=== PATIENT | male | born 1995 | race Hispanic/Latino ===

== ENCOUNTER 2022-06-07 18:16 | Emergency (ER) | payer OTHER ==
--- NOTE | 2022-06-07 18:51 | ER ---
Nurse's Notes [facility] Name: Jeffrey Brunson Age: 27 yrs Sex: Male : 1995 Arrival Date: 06/07/2022 Time: 18:18 Bed 16 Private MD: Diagnosis: Unspecified otitis externa, left ear Presentation: 06/07 18:20 Chief complaint: Left ear pain that radiates to neck x 3 days. Coronavirus screen: At this time, the client does not indicate any symptoms associated with coronavirus-19. Ebola Screen: No symptoms or risks identified at this time. Initial Sepsis Screen: Does the patient meet any 2 criteria? No. Patient's initial sepsis screen is negative. Does the patient have a suspected source of infection? No. Patient's initial sepsis screen is negative. Risk Assessment: Do you want to hurt yourself or someone else? Patient reports no desire to harm self or others. Onset of symptoms was June 04, 2022. 18:20 Method Of Arrival: Ambulatory 18:20 Acuity: CHILO 4 hb Historical: - Allergies: 18:21 No Known Allergies; hb - Immunization history:: Adult Immunizations unknown. - Social history:: Smoking status: unknown. Screenin:07 Abuse screen: Denies threats or abuse. Denies injuries from another. Nutritional db screening: No deficits noted. Tuberculosis screening: No symptoms or risk factors identified. Fall Risk None identified. No fall in past 12 months (0 pts). No secondary diagnosis (0 pts). No IV (0 pts). Ambulatory Aid- None/Bed Rest/Nurse Assist (0 pts). Gait- Normal/Bed Rest/Wheelchair (0 pts) Mental Status- Oriented to own ability (0 pts). Total Cornelius Fall Scale indicates No Risk (0-24 pts). Assessment: 19:06 Reassessment: Patient appears in no apparent distress at this time. Patient and/or db family updated on plan of care and expected duration. Pain level reassessed. Patient is alert, oriented x 3, equal unlabored respirations, skin warm/dry/pink. left ear pain x 3 days. 19:07 General: Appears in no apparent distress. comfortable, Behavior is calm, cooperative, db appropriate for age. Pain: Complains of pain in left ear. Neuro: No deficits noted. Level of Consciousness is awake, alert, obeys commands, Oriented to person, place, time, situation, Appropriate for age Speech is normal, Facial symmetry appears normal. Cardiovascular: No deficits noted. Respiratory: No deficits noted. GI: No deficits noted. : No deficits noted. No signs and/or symptoms were reported regarding the genitourinary system. EENT: Tympanic membrane reddened on left ear Ear canal pain. Vital Signs: 18:20 BP 165 / 78; Pulse 100; Resp 20; Temp 98.4; Pulse Ox 100% on R/A; Weight 154.22 kg; hb Height 5 ft. 10 in. (177.80 cm); Pain 6/10; 18:20 Body Mass Index 48.78 (154.22 kg, 177.80 cm) hb ED Course: 18:18 Patient arrived in ED. rg4 18:19 Sudhakar Miner PA is PHCP. cp 18:19 Dallas Bryan DO is Attending Physician. cp 18:21 Triage completed. hb 18:49 Tana Martinez MD is Referral Physician. cp 18:57 Leeanne Lemons, RN is Primary Nurse. db 19:07 Patient has correct armband on for positive identification. Bed in low position. Side db rails up X 1. 19:07 No provider procedures requiring assistance completed. Patient did not have IV access db during this emergency room visit. 19:11 Arm band placed on right wrist. db Administered Medications: No medications were administered Medication: 19:07 VIS not applicable for this client. db Outcome: 18:50 Discharge ordered by MD. cp 19:07 Discharged to home db 19:07 Discharged to home ambulatory. 19:07 Condition: stable 19:07 Discharge instructions given to Instructed on discharge instructions, follow up and referral plans. Prescriptions given X 1. 19:11 Patient left the ED. db Signatures: Sudhakar Miner PA PA cp Baxter, Heather, RN RN Caridad Munoz rg4 Leeanne Lemons RN RN db Corrections: (The following items were deleted from the chart) 19:09 19:06 Reassessment: Patient appears in no apparent distress at this time. Patient db and/or family updated on plan of care and expected duration. Pain level reassessed. Patient is alert, oriented x 3, equal unlabored respirations, skin warm/dry/pink. right ear pain x 3 days db
--- NOTE | 2022-06-07 18:51 | EDPHYS ---
Physician Documentation [facility] Name: Jeffrey Brunson Age: 27 yrs Sex: Male : 1995 Arrival Date: 06/07/2022 Time: 18:18 Bed 16 Private MD: ED Physician Dallas Bryan HPI: 06/07 18:48 This 27 yrs old Male presents to ER via Ambulatory with complaints of Ear Pain.cp 18:48 The complaints affect the left ear. cp 18:48 The patient presents with pain, that is acute, swelling. Onset: The symptoms/episode cp began/occurred 3 day(s) ago. 18:48 Associated signs and symptoms: The patient has no apparent associated signs or symptoms.cp 18:50 Patient reports he saw ENT Wednesday and had ear wax removed from left ear canal but no cp infection. Was told to return if pain continues. Historical: - Allergies: 18:21 No Known Allergies; hb - Immunization history:: Adult Immunizations unknown. - Social history:: Smoking status: unknown. ROS: 18:50 Eyes: Negative for injury, pain, redness, and discharge. cp 18:50 Constitutional: Negative for body aches, chills, fever, poor PO intake. 18:50 ENT: Positive for ear pain, Negative for drainage from ear(s), sore throat, difficulty swallowing, difficulty handling secretions. 18:50 Respiratory: Negative for cough, shortness of breath, wheezing. 18:50 Skin: Negative for rash. 18:50 Neuro: Negative for headache. 18:50 All other systems are negative. Exam: 18:50 Constitutional: The patient appears in no acute distress, alert, awake, non-toxic, well cp developed, well nourished, obese. 18:50 Head/Face: Normocephalic, atraumatic. cp 18:50 Eyes: Periorbital structures: appear normal, Conjunctiva: normal, no exudate, no injection, Lids and lashes: appear normal, bilaterally. 18:50 ENT: External ear(s): pain with movement, of the pinna of left ear and left ear canal, Ear canal(s): swelling, of the left canal, mild, TM's: dullness, bilaterally, Nose: is normal, Mouth: Lips: moist, Oral mucosa: pink and intact, moist, Posterior pharynx: Airway: no evidence of obstruction, patent. 18:50 Neck: Lymph nodes: no appreciated lymphadenopathy. 18:50 Chest/axilla: Inspection: normal. 18:50 Cardiovascular: Rate: normal. 18:50 Respiratory: the patient does not display signs of respiratory distress, Respirations: normal. 18:50 Skin: no rash present. Vital Signs: 18:20 BP 165 / 78; Pulse 100; Resp 20; Temp 98.4; Pulse Ox 100% on R/A; Weight 154.22 kg; hb Height 5 ft. 10 in. (177.80 cm); Pain 6/10; 18:20 Body Mass Index 48.78 (154.22 kg, 177.80 cm) hb MDM: 18:30 Patient medically screened. cp 18:50 Differential diagnosis: otitis media, otitis externa, ruptured TM, foreign body, acute cp otalgia, cerumen impaction. 18:50 Data reviewed: vital signs, nurses notes. Counseling: I had a detailed discussion with cp the patient and/or guardian regarding: the historical points, exam findings, and any diagnostic results supporting the discharge/admit diagnosis, the need for outpatient follow up, an ENT specialist, to return to the emergency department if symptoms worsen or persist or if there are any questions or concerns that arise at home. Administered Medications: No medications were administered Disposition: 18:57 Co-signature as Attending Physician, Dallas Bryan DO I was immediately available onsite ms3 in the emergency department for consultation in the care of the patient. Disposition Summary: 06/07/22 18:50 Discharge Ordered Location: Home cp Problem: new cp Symptoms: are unchanged cp Condition: Stable cp Diagnosis - Unspecified otitis externa, left ear cp Followup: cp - With: Tana Martinez MD - When: 2 - 3 days - Reason: Recheck today's complaints Discharge Instructions: - Discharge Summary Sheet cp - Otitis Externa cp Forms: - Medication Reconciliation Form cp - Thank You Letter cp - Antibiotic Education cp - Prescription Opioid Use cp - Work release form db Prescriptions: - Ciprodex 0.3-0.1 % Otic Drops, Suspension - instill 4 drops by OTIC route every 12 hours for 7 days , for ears ONLY; 1 cp Container; Refills: 0, Product Selection Permitted Signatures: Sudhakar Miner PA PA cp Baxter Terrie, RN RN hb Dallas Bryan, DO ms3 Leeanne Lemons, RN RN db Corrections: (The following items were deleted from the chart) 06/08 17:17 11 18:55 ENT: Positive for ear pain, Negative for drainage from ear(s), sore throat, cp difficulty swallowing, difficulty handling secretions, cp 06/08 17:17 11 18:55 Respiratory: Negative for cough, shortness of breath, wheezing, cp cp 06/08 17:17 11 18:55 Constitutional: Negative for body aches, chills, fever, poor PO intake, cp cp 06/08 17:17 11 18:55 Eyes: Negative for injury, pain, redness, and discharge, cp cp 06/08 17:17 11 18:55 Skin: Negative for rash, cp cp 06/08 17:17 11 18:55 Neuro: Negative for headache, cp cp 06/08 17:17 11 18:55 All other systems are negative, cp cp
[2022-06-07 19:48] VITALS: BP 165/78; TEMP 98.4; O2SAT 100
== END 2022-06-07 19:11 | disposition home or self-care (01) ==
LOC: ER 18:16
DX: H60.92 Unspecified otitis externa, left ear (principal)
CPT/HCPCS: 99282